=== PATIENT | female | born 1970 | race Caucasian/White ===

== ENCOUNTER 2022-04-12 09:22 | Outpatient (CLI) | payer BC, SELFPAY ==
[2022-04-12 13:22] LABS: Albumin* 4.3 g/dL (3.3-5.0); Chloride* 100 mmol/L (96-114)
[2022-04-12 13:23] LABS: Potassium* 4.5 mmol/L (3.6-5.1); Sodium* 137 mmol/L (135-149)
[2022-04-12 13:25] LABS: Bilirubin Total* 0.3 mg/dL (0.1-1.5); Carbon Dioxide* 31 mmol/L (20-32); Cholesterol* 222 mg/dL (90-199); Creatinine* 0.6 mg/dL (0.5-1.5); Estimated Glomerular Filt Rate 108 ml/min; Total Protein* 6.9 g/dL (6.0-8.3)
[2022-04-12 13:26] LABS: Alanine Aminotransferase* 20 U/L (4-35); Alkaline Phosphatase* 82 U/L (40-150); Aspartate Amino Transferase* 29 U/L (12-35); Blood Urea Nitrogen* 21 mg/dL (7-30); Calcium* 9.3 mg/dL (8.4-10.6); Glucose* 88 mg/dL (60-115); HDL Cholesterol* 77 mg/dL (>=50); LDL Cholesterol Calculated 122 mg/dL (<100); Triglycerides* 115 mg/dL (40-149)
== END 2022-04-12 09:23 | disposition home or self-care (01) ==
PROVIDERS: PCP Emergency Medicine; Visit Provider Emergency Medicine
DX: Z00.00 Encounter for general adult medical examination without abnormal findings (principal); Z13.6 Encounter for screening for cardiovascular disorders
CPT/HCPCS: 80053; 80061

== ENCOUNTER 2022-10-17 13:51 | Outpatient (CLI) | payer BC, SELFPAY | END 2022-10-17 13:52 | disposition home or self-care (01) | PROVIDERS: PCP Emergency Medicine; Visit Provider Emergency Medicine | DX: E78.5 Hyperlipidemia, unspecified (principal); E66.9 Obesity, unspecified; R63.5 Abnormal weight gain | CPT/HCPCS: 80048; 80076; 84443 ==

== ENCOUNTER 2023-06-26 15:25 | Outpatient (CLI) | payer BC, SELFPAY | END 2023-06-26 15:26 | disposition home or self-care (01) | PROVIDERS: PCP Emergency Medicine; Visit Provider Emergency Medicine | DX: Z00.00 Encounter for general adult medical examination without abnormal findings (principal); E78.5 Hyperlipidemia, unspecified; E66.9 Obesity, unspecified; R63.5 Abnormal weight gain; R60.9 Edema, unspecified; Z68.38 Body mass index [BMI] 38.0-38.9, adult | CPT/HCPCS: 80048; 80061 ==

== ENCOUNTER 2023-11-12 18:34 | Outpatient (CLI) | payer BC, SELFPAY ==
--- NOTE | 2023-11-12 18:40 | MM_ITS ---
Patient: KENYATTA MEDINA Facility:?[facility] Patient ID:?[id number] Site Patient ID:?[id number]. Site :?[id number] Study:?XRay-Breast Bilateral 3D screening mammogram w/cad-11/12/2023 6:54:58 PM Ordering Physician:vanita Final Report: BILATERAL SCREENING MAMMOGRAM WITH COMPUTER-AIDED DETECTION AND TOMOSYNTHESIS TECHNIQUE: CC and MLO views were obtained. These mammographic images have been obtained using full-field digital technique. These mammographic images were interpreted with the benefit of computer-aided detection. Breast Tomosynthesis was used in this interpretation. COMPARISON FILM: 06/15/21, 06/13/20, [place]. FINDINGS: There are scattered areas of fibroglandular density IMPRESSION: There is no radiographic evidence for malignancy. ASSESSMENT: BI-RADS Category 2: Benign RECOMMENDATION: Routine screening mammogram in 1 year. A lay language report of this examination will be provided to the patient. Prosper Templeton M.D. Diagnostic Radiologist [email or web address] CHITRA/pedro R& Transcribed: 7:53 p.m. DAVID/Dictated by: Prosper Templeton MD @ 11/14/2023 1:33:00 PM Signed by:?Prosper Templeton MD @11/14/2023 8:29:59 PM (Electronic Signature)
== END 2023-11-12 18:35 | disposition home or self-care (01) ==
LOC: MAMMO 18:35
PROVIDERS: PCP Emergency Medicine; Visit Provider Emergency Medicine
DX: Z12.31 Encounter for screening mammogram for malignant neoplasm of breast (principal)
CPT/HCPCS: 77063; 77067

== ENCOUNTER 2024-10-07 10:47 | Outpatient (CLI) | payer BC, SELFPAY | END 2024-10-07 10:48 | disposition home or self-care (01) | LOC: LKVREF 10:48 | PROVIDERS: PCP Emergency Medicine; Visit Provider Emergency Medicine | DX: I10 Essential (primary) hypertension (principal) | CPT/HCPCS: 80048 ==